=== PATIENT | male | born 1955 | race Caucasian/White ===

== ENCOUNTER → 2020-07-20 | Outpatient (CLI) | payer MEDICARE, OTHER ==
[~2020-07-20] MED LIST: ANTI-ITCH28 GM TP
== END ==
LOC: EXRD 07:35
DX: R10.11 Right upper quadrant pain (principal)
CPT/HCPCS: 76705

== ENCOUNTER → 2020-08-05 | Outpatient (CLI) | payer MEDICARE, OTHER | LOC: MRI 12:59 | DX: H90.3 Sensorineural hearing loss, bilateral (principal); R93.0 Abnormal findings on diagnostic imaging of skull and head, not elsewhere classified | CPT/HCPCS: 36415; 70553; 82565; 84520; A9577 ==

== ENCOUNTER → 2020-08-11 | Outpatient (CLI) | payer MEDICARE, OTHER | LOC: CT 12:20 | DX: R10.13 Epigastric pain (principal) | CPT/HCPCS: 74160; Q9967 ==

== ENCOUNTER → 2020-09-01 | Outpatient (CLI) | payer MEDICARE, OTHER | LOC: ECHO 13:00 | DX: R01.1 Cardiac murmur, unspecified (principal); I08.3 Combined rheumatic disorders of mitral, aortic and tricuspid valves; I27.20 Pulmonary hypertension, unspecified | CPT/HCPCS: ECHO; 93306 ==

== ENCOUNTER 2021-10-22 17:06 | Emergency (ER) | payer MEDICARE, OTHER ==
[2021-10-22 17:43] LABS: HEMOGLOBIN 13.8 gm/dl (14.0-17.5); RED BLOOD COUNT 4.31 M/UL (4.20-5.50); WHITE BLOOD COUNT 10.5 K/UL (4.5-11.0)
[2021-10-22 18:06] LABS: BUN/CREATININE RATIO 13 (0-10)
== END 2021-10-22 21:12 | disposition home or self-care (01) ==
LOC: ER1 17:06
DX: R55 Syncope and collapse (principal); M25.571 Pain in right ankle and joints of right foot; E78.5 Hyperlipidemia, unspecified; F17.210 Nicotine dependence, cigarettes, uncomplicated
CPT/HCPCS: 70496; 70498; 71045; 73610; 80053; 82550; 82553; 84484; 85025; 93005; 99284; Q9967